=== PATIENT | male | born 1950 | race Caucasian/White ===

== ENCOUNTER 2017-12-17 05:30 | Day surgery (SDC) | payer MEDICARE ==
[2017-12-16 12:43] LABS: BASOPHILS # (AUTO) 0.1 X10'3 (0-0.2); EOSINOPHILS # (AUTO) 0.2 X10'3 (0-0.9); EOSINOPHILS % (AUTO) 3.1 % (0-6); LYMPHOCYTES # (AUTO) 1.7 X10'3 (1.1-4.8); LYMPHOCYTES % (AUTO) 30.9 % (21-51); MEAN CORPUSCULAR HEMOGLOBIN 31.1 PG (27.0-31.0); MEAN CORPUSCULAR HGB CONC 33.3 % (33.0-36.5); MEAN CORPUSCULAR VOLUME 93.5 FL (78-98); MEAN PLATELET VOLUME 7.9 FL (7.4-10.4); MONOCYTES # (AUTO) 0.6 X10'3 (0-0.9); MONOCYTES % (AUTO) 10.8 % (2-12); NEUTROPHILS # (AUTO) 2.9 X10'3 (1.8-7.7); NEUTROPHILS % (AUTO) 54.2 % (42-75); PRE OP HEMATOCRIT 45.1 % (42.0-52.0); PRE OP PLATELET COUNT 214 X10'3 (140-440); RED BLOOD COUNT 4.83 X10'6 (4.70-6.10); RED CELL DISTRIBUTION WIDTH 13.7 % (11.5-14.5)
[2017-12-16 13:02] LABS: ALBUMIN 3.4 G/DL (3.4-5.0); ALBUMIN/GLOBULIN RATIO 0.9 (1.1-1.5); ALKALINE PHOSPHATASE 84 IU/L (46-116); BLOOD UREA NITROGEN 20 MG/DL (7-18); BUN/CREATININE RATIO 18.5 (5.4-32.0); CALCIUM 8.4 MG/DL (8.5-10.1); CHLORIDE 104 MMOL/L (99-107); CREATININE 1.08 MG/DL (0.60-1.10); PRE OP ALT 30 U/L (30-65); PRE OP ANION GAP 8 (8-16); PRE OP AST 23 U/L (10-37); PRE OP BILIRUB, TOTAL 0.4 MG/DL (0.0-1.0); PRE OP GLUCOSE 94 MG/DL (70-104); PRE OP POTASSIUM 3.9 MMOL/L (3.4-5.1); PRE OP SODIUM 141 MMOL/L (135-145); TOTAL CARBON DIOXIDE 28.7 MMOL/L (24-32); TOTAL PROTEIN 7.3 G/DL (6.4-8.2); eGFR 68 ML/MIN
[~2017-12-17] VITALS: Ht 177.8 cm; Wt 89.1 kg
[2017-12-17] VITALS (8 sets, daily range): BP systolic 94–128; BP diastolic 59–80
[~2017-12-17 05:30] MED LIST: CHOLECALCIFEROL PO; FISH OIL PO; KETOCONAZOLE CREAM TOP; MULTIVITAMIN PO
[2017-12-17] MEDS ORDERED: famotidine 20mg tablet PO ONE (05:54)
[2017-12-17] MEDS ORDERED: ringers solution, lacted 1,000 ML IV SCH ×2 (05:54→08:00)
[2017-12-17] MEDS ORDERED: cefazolin/dext.iso 2gm/100 ML IV ONE (05:58)
[2017-12-17] MEDS ORDERED: LIDOcaine 1% (10mg/ml) 2ml vial ONE ×2 (06:03)
[2017-12-17] MEDS ORDERED: BUPIVAcaine/PF 2.5mg/ml (0.25%) 10ml vial ONE ×2 (06:39→08:02)
[2017-12-17] MEDS ORDERED: LIDOcaine 0.5% (5mg/ml) 50ml vial ONE (07:14)
[2017-12-17] MEDS ORDERED: fentaNYL/PF 50MCG/1 ML 2ML syringe ONE ×2 (07:17→07:39)
[2017-12-17] MEDS ORDERED: MIDAZolam 5mg/5ml vial ONE (07:18)
[2017-12-17] MEDS ORDERED: morphine 4 MG/ML inj SYRINge IV PRN ×2 (08:00)
[2017-12-17] MEDS ORDERED: ondansetron/PF 4mg/2ml inj IV PRN (08:00)
[2017-12-17] MEDS ORDERED: proCHLORperazine 10 MG/2 ml inj IV PRN (08:00)
[2017-12-17] MEDS ORDERED: meperidine/PF 25mg/ml syringe IV PRN ×3 (08:00)
[2017-12-17] MEDS ORDERED: HYDROcodone/acetaminophen 10/325mg tab PO ONE (09:05)
== END 2017-12-17 09:10 | disposition home or self-care (01) ==
LOC: PAS 05:30
PROVIDERS: ATTEND Orthopaedic Surgery Hand Surgery
DX: M18.11 Unilateral primary osteoarthritis of first carpometacarpal joint, right hand (principal); H40.9 Unspecified glaucoma; Z79.899 Other long term (current) drug therapy; Z98.890 Other specified postprocedural states
CPT/HCPCS: 25312; 25447; 36415; 80053; 85025; 93005; A6449; J0690; J2001; J2250; J3010; J3490; J7120